=== PATIENT | female | born 1980 | race Caucasian/White ===

== ENCOUNTER 2017-08-19 20:47 | Inpatient (IN) | payer OTHER ==
[~2017-08-19] VITALS: Ht 162.6 cm; Wt 65.0 kg
[2017-08-19] MEDS ORDERED: MoRPHine SULFATE 4 MG/ML 1 ML CARP\\VIAL ONE (21:26)
[2017-08-19] MEDS ORDERED: ONDANSETRON INJ 2 MG/ML 2 ML VIAL ONE (21:26)
[2017-08-19] MEDS ORDERED: CEFAZOLIN SOD 1000MG/5 ML IV PUSH IV STA ×2 (21:31→22:22)
[2017-08-19] MEDS ORDERED: XYLOCAINE 1%/SOD BICARB 20 ML VIAL INFIL ONE (21:45)
[2017-08-19] MEDS ORDERED: BUPIVACAINE 0.25% 30 ML VIAL INFIL ONE (21:45)
--- NOTE | 2017-08-19 21:49 | DIAGNOSTIC IMAGING REPORT ---
R HAND MIN 3 VIEWS ROUTINE CLINICAL HISTORY: 2nd 3rd and 4th finger amputation COMPARISON: None. DISCUSSION: No evidence for soft tissue avulsions overlying the distal phalanges of the second third and fourth fingers. small partial bony avulsions of the tuft of dislocation. No evidence dislocation. The remaining bony structures are unremarkable. IMPRESSION: 1. Partial tuft avulsions of the distal phalanges of the second third and fourth fingers with associated soft tissue disruption and substance loss. No evidence for dislocation. The above report was generated using voice recognition software. It may contain grammatical, syntax or spelling errors. Electronically signed by: Arie Vargas M.D. 08/19/2017 9:47 PM Dictated Date/Time: 08/19/2017 9:46 PM
[2017-08-19 21:53] LABS: BASO % 0.3 %; BASO ABS # 0.03 K/uL (0-0.2); COMPLETE YES; EOS % 1.6 %; IG% 0.3 %; LYMPH % 30.4 %; LYMPH ABS # 2.84 K/uL (1.2-3.4); MEAN CELL VOLUME 93.1 fL (80-100); MEAN CORPUSCULAR HEMOGLOBIN 31.4 pg (25-34); MEAN CORPUSCULAR HGB CONC 33.7 g/dl (32-36); MEAN PLATELET VOLUME 9.2 fL (7.4-10.4); MONO % 10.2 %; NEUT % 57.2 %; PLATELET COUNT 295 K/uL (130-400); RED BLOOD COUNT 4.08 M/uL (4.2-5.4); WHITE BLOOD COUNT 9.35 K/uL (4.8-10.8)
[2017-08-19 22:01] LABS: BUN/CREATININE RATIO 11.1 (10-20); CALCIUM 8.7 mg/dl (8.5-10.1); CREATININE 0.77 mg/dl (0.60-1.20); POTASSIUM 3.4 mmol/L (3.5-5.1)
[2017-08-19] MEDS ORDERED: HYDROmorphone INJ 1 MG/ML SYR ONE (22:04)
[2017-08-19] MEDS ORDERED: GENTAMICIN INJ 60 MG in DEXTROSE 5% 100ML 100 ML IV STA (22:28)
[2017-08-19] MEDS ORDERED: DIPHTHERIA/TETANUS/PERTUSSIS 0.5 ML SYR/VIAL IM. ONE (22:30)
[2017-08-19] MEDS ORDERED: BUPR-79 PO (22:31)
[2017-08-20] VITALS (7 sets, daily range): BP systolic 124–152; BP diastolic 79–103; PULSE 61–77; TEMP 36.3–36.6; O2SAT 98–100; Ht 162.6 cm; Wt 65.0 kg
[2017-08-20] MEDS ORDERED: HYDROmorphone INJ 0.5 MG/0.5 ML SYR IM PRN
[2017-08-20] MEDS ORDERED: ONDANSETRON INJ 2 MG/ML 2 ML VIAL IV PRN
[2017-08-20] MEDS ORDERED: METOCLOPRAMIDE HCL INJ 5 MG/ML 2 ML VIAL IV PRN
--- NOTE | 2017-08-20 00:39 | EMERGENCY ROOM VISIT NOTE ---
History Report prepared by Srinivas: Alexandra Riggs Under the Supervision of: Dr. Khanh Mcpherson M.D. First contact with patient: 21:11 Chief Complaint: LACERATION/CUT (SUT/DERMABOND) Stated Complaint: LAC FINGERS MISSING W/C Nursing Triage Summary: pt reports that she was at work and pinched her fingers in a press. pt has amputation of right 2nd, 3rd and 4th fingers above the 1st knuckle. History of Present Illness The patient is a 37 year old female who presents to the Emergency Room with complaints of an episode of a laceration to her fingers occurring prior to arrival. The patient states that she was working a press when her fingers rolled down into the cylinders. She reports that they crushed them together. The patient notes that she is a past addict and doesn't want any pain medication. She denies any chance of being . The patient states that her last Tetanus was 7 years ago. She reports that she is right handed. She currently rates her pain as an 8/10 in severity. She denies any other injury. Source of History: patient Onset: prior to arrival Position: finger(s) Symptom Intensity: 8/10 Quality: other (crushed) Timing: other (episode) Modifying Factors (Worsening): movement Associated Symptoms: No vomiting Review of Systems See HPI for pertinent positives & negatives. A total of 10 systems reviewed and were otherwise negative. Past Medical & Surgical Medical Problems: (1) Degloving injury of finger (2) Degloving injury of forearm (3) No Known Active Medical Problems Family History No pertinent family history Social History Smoking Status: Current Every Day Smoker Marital Status: single Housing Status: lives alone Occupation Status: employed Current/Historical Medications Scheduled Bupropion (Wellbutrin Sr), 150 MG PO BID Allergies Coded Allergies: Acetaminophen (Unverified Allergy, Intermediate, VOMITING, 06/01/12) Hydrocodone (Unverified Allergy, Intermediate, VOMITING, 06/01/12) Levofloxacin (Unverified Allergy, Intermediate, FAINTING, 06/01/12) Hyoscyamine (Verified Allergy, Unknown, UNKNOWN, 08/19/17) Tramadol (Unverified Allergy, Unknown, SHORTNESS OF BREATH, 08/19/17) Physical Exam Vital Signs Date Time Temp Pulse Resp B/P (MAP) Pulse Ox O2 Delivery O2 Flow Rate FiO2 08/19/17 23:45 135/87 08/19/17 23:35 75 20 95 08/19/17 23:30 131/90 08/19/17 23:20 90 19 95 Room Air 08/19/17 23:15 131/93 08/19/17 23:05 87 22 98 08/19/17 23:00 79 20 127/85 96 08/19/17 22:45 85 15 140/88 97 08/19/17 22:30 88 16 133/90 95 08/19/17 22:26 123/92 08/19/17 22:21 145/88 08/19/17 22:15 101 19 150/94 90 08/19/17 22:10 146/99 08/19/17 22:05 143/100 08/19/17 22:00 82 21 146/95 95 08/19/17 21:57 77 16 133/90 96 Room Air 08/19/17 21:57 133/90 08/19/17 21:45 83 16 97 08/19/17 21:30 87 17 135/84 94 08/19/17 21:29 100 20 135/84 95 Room Air 08/19/17 21:15 108 18 96 08/19/17 21:07 149/99 08/19/17 21:07 91 24 149/99 97 Room Air 08/19/17 21:03 92 08/19/17 20:57 103 16 162/98 Room Air 08/19/17 20:54 36.7 66 20 97 Room Air Physical Exam Constitutional: Vital signs reviewed. Eyes: Pupils are equal round reactive to light. Conjunctiva are noninjected. ENT: Pharynx is clear without erythema or exudate. Mucous membranes are moist. Neck supple without meningeal signs. Respiratory: Clear to auscultation bilaterally. Breath sounds are equal bilaterally. Cardiovascular: Regular rate and rhythm. No rubs or gallops. GI: Soft, nondistended and nontender. Bowel sounds are present. Musculoskeletal: No peripheral edema. No lower extremity tenderness. Distal amputations of the right second, third, and fourth digits with the distal phalanges protruding outwards. Nails are also amputated. Integumentary: No cyanosis. Neurological: The patient is awake and alert. No focal deficits. Psychiatric: Anxious. Medical Decision & Procedures ER Provider Diagnostic Interpretation: Radiology results as stated below per my review and the radiologist's interpretation: R HAND MIN 3 VIEWS ROUTINE CLINICAL HISTORY: 2nd 3rd and 4th finger amputation COMPARISON: None. DISCUSSION: No evidence for soft tissue avulsions overlying the distal phalanges of the second third and fourth fingers. small partial bony avulsions of the tuft of dislocation. No evidence dislocation. The remaining bony structures are unremarkable. IMPRESSION: 1. Partial tuft avulsions of the distal phalanges of the second third and fourth fingers with associated soft tissue disruption and substance loss. No evidence for dislocation. The above report was generated using voice recognition software. It may contain grammatical, syntax or spelling errors. Electronically signed by: Arie Vargas M.D. 08/19/2017 9:47 PM Dictated Date/Time: 08/19/2017 9:46 PM Laboratory Results 08/19/17 21:05 Red Blood Count 4.08, Mean Corpuscular Volume 93.1, Mean Corpuscular Hemoglobin 31.4, Mean Corpuscular Hemoglobin Concent 33.7, Mean Platelet Volume 9.2, Neutrophils (%) (Auto) 57.2, Lymphocytes (%) (Auto) 30.4, Monocytes (%) (Auto) 10.2, Eosinophils (%) (Auto) 1.6, Basophils (%) (Auto) 0.3, Neutrophils # (Auto ) 5.35, Lymphocytes # (Auto) 2.84, Monocytes # (Auto) 0.95, Eosinophils # (Auto ) 0.15, Basophils # (Auto) 0.03 08/19/17 21:05 Test 08/19/17 21:05 White Blood Count 9.35 K/uL (4.8-10.8) Red Blood Count 4.08 M/uL (4.2-5.4) Hemoglobin 12.8 g/dL (12.0-16.0) Hematocrit 38.0 % (37-47) Mean Corpuscular Volume 93.1 fL (80-100) Mean Corpuscular Hemoglobin 31.4 pg (25-34) Mean Corpuscular Hemoglobin Concent 33.7 g/dl (32-36) Platelet Count 295 K/uL (130-400) Mean Platelet Volume 9.2 fL (7.4-10.4) Neutrophils (%) (Auto) 57.2 % Lymphocytes (%) (Auto) 30.4 % Monocytes (%) (Auto) 10.2 % Eosinophils (%) (Auto) 1.6 % Basophils (%) (Auto) 0.3 % Neutrophils # (Auto) 5.35 K/uL (1.4-6.5) Lymphocytes # (Auto) 2.84 K/uL (1.2-3.4) Monocytes # (Auto) 0.95 K/uL (0.11-0.59) Eosinophils # (Auto) 0.15 K/uL (0-0.5) Basophils # (Auto) 0.03 K/uL (0-0.2) RDW Standard Deviation 47.9 fL (36.4-46.3) RDW Coefficient of Variation 14.0 % (11.5-14.5) Immature Granulocyte % (Auto) 0.3 % Immature Granulocyte # (Auto) 0.03 K/uL (0.00-0.02) Anion Gap 9.0 mmol/L (3-11) Est Creatinine Clear Calc Drug Dose 84.8 ml/min Estimated GFR () 112.7 Estimated GFR (Non- 97.3 BUN/Creatinine Ratio 11.1 (10-20) Calcium Level 8.7 mg/dl (8.5-10.1) Laboratory results as reviewed by me. Medications Administered Medications (Trade) Dose Ordered Sig/Giuliano Route Start Time Stop Time Status Last Admin Dose Admin Morphine Sulfate (MoRPHine SULFATE INJ) 4 mg STK-MED ONCE .ROUTE 08/19/17 21:26 08/19/17 21:27 DC 08/19/17 21:29 4 MG Ondansetron HCl (Zofran Inj) 4 mg STK-MED ONCE .ROUTE 08/19/17 21:26 08/19/17 21:27 DC 08/19/17 21:28 4 MG Cefazolin Sodium (Cefazolin 1000mg Iv Push) 1,000 mg NOW STAT IV 08/19/17 21:31 08/19/17 21:32 DC 08/19/17 21:35 1,000 MG Hydromorphone HCl (Dilaudid Inj) 1 mg STK-MED ONCE .ROUTE 08/19/17 22:04 08/19/17 22:05 DC 08/19/17 22:15 1 MG Diphtheria/ Pertussis/Tetanus Vacc (Adacel Inj) 0.5 ml ONCE ONCE IM. 12/5/17 22:30 08/19/17 22:31 DC 08/20/17 00:10 0.5 ML Cefazolin Sodium (Cefazolin 1000mg Iv Push) 1,000 mg NOW STAT IV 08/19/17 22:22 08/19/17 22:24 DC 08/20/17 00:10 1,000 MG Gentamicin Sulfate 60 mg/ Dextrose 101.5 ml @ 100 mls/hr NOW STAT IV 08/19/17 22:28 08/19/17 23:28 DC 08/20/17 00:21 100 MLS/HR ED Course 2110: The patient was evaluated in room B1. A complete history and physical exam was performed. 2125: Ordered Zofran 4 mg .ROUTE, Morphine Sulfate 4 mg .ROUTE. 2130: Ordered Cefazolin Sodium 1000 mg IV. 5: I discussed the patient's case with Dr. Dixon. He is going to come in and evaluate the patient. 2145: Ordered Lidocaine HCl 20 ml INFIL, Bupivacaine HCl 10 ml INFIL. 2204: Ordered Dilaudid Inj 1 mg .ROUTE. 2222: Ordered Cefazolin Sodium 1000 mg IV. 2223: Dr. Paul requested additional Cefazolin Sodium and Tetanus booster. 2227: I discussed with the patient her allergy to Levaquin. She stated that when she was an addict she would make up allergies, but she is unsure why she made up an allergy to an antibiotic. Humberto states that we should give her Gentamicin. 2228: Ordered Gentamicin Sulfate 60 mg/Dextrose 101.5 ml @ 100 mls/hr IV. 2230: Ordered Adacel Inj 0.5 ml IM. 0003: Dr. Paul is going to further evaluate the patient and discharge after IV antibiotics. Medical Decision This is a 37-year-old female presents with partial amputations to her right hand. She is right-hand dominant. I did perform a limited focused review of portions of the patient's old chart on the electronic medical record. The patient has had no recent pertinent visits to this hospital. I did evaluate the patient as noted above. IV access was established. I did order and personally review the patient's right hand x-rays as described above. I did order and review the patient's blood work as noted in the electronic medical record. Initially the patient did not wish to have any narcotics because of her prior addiction. Unfortunately the patient's pain became worse while getting x-rays and so she did request something for pain. She was given 4 mg of morphine and 4 mg of Zofran IV. I also treated patient with Ancef IV. I did discuss case with the orthopedic doctor who did come and evaluate the patient here. He did repair her fingers in the emergency department. He did request that the patient receive additional antibiotics including gentamicin and a tetanus is 2. The patient was given an Adacel injection IM. She was also given an additional gram of Ancef IV. Because of a listed fluoroquinolone allergy she was given gentamicin IV. The patient was hospitalized by the orthopedic surgeon. Medication Reconcilliation Current Medication List: was personally reviewed by me Blood Pressure Screening Patient's blood pressure: Elevated blood pressure Blood pressure disposition: Elevated BP felt to be situational Consults Time Called: 2131 Consulting Physician: Dr. Dixon- Orthopedics Returned Call: 2134 I discussed the patient's case with Dr. Dixon. He is going to come in and evaluate the patient. 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 I confirm that the note above accurately reflects all work, treatment, procedures, and medical decision making performed by me. 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 Encounter type: initial encounter Qualified Codes: S68.622A - Partial traumatic transphalangeal amputation of right middle finger, initial encounter Additional Impressions: Partial traumatic transphalangeal amputation of right index finger Encounter type: initial encounter Qualified Codes: S68.620A - Partial traumatic transphalangeal amputation of right index finger, initial encounter Partial traumatic transphalangeal amputation of right ring finger Encounter type: initial encounter Qualified Codes: S68.624A - Partial traumatic transphalangeal amputation of right ring finger, initial encounter
--- NOTE | 2017-08-20 01:03 | HISTORY & PHYSICAL EXAMINATION ---
DATE OF ADMISSION: 08/19/2017 CHIEF COMPLAINT: Degloving injury to the right index, long, and ring fingers. HISTORY OF PRESENT ILLNESS: Ms. Trujillo is a 37-year-old right hand dominant female who was at work tonight around 8:15 p.m. at a [employer] factory when her index, long, and ring fingers became caught between 2 rollers sustaining a degloving injury of these fingers. She was brought from the scene by private car to the Emergency Room. X-rays were obtained. Orthopedics was consulted for management. The patient denies any previous problems with the hand. She did not sustain any other injuries from this accident. The pain is localized to the tips of the 3 fingers. She has not had a tetanus shot in 7 years. She did receive 4 mg of IV morphine initially in the Emergency Room which brought her pain from a 10/10 to a 6/10. 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 PHYSICAL EXAMINATION: GENERAL: She is a healthy appearing female in appropriate amount of distress given her injury, but alert and oriented x3. CARDIOVASCULAR: Reveals patient to have warm and well perfused bilateral upper extremities with adequate blood flow to the fingertips as evidenced by bleeding of the index, long, and ring fingers. NEUROLOGIC: Reveals it to be sensory intact to light touch in median, ulnar, radial nerve distributions bilaterally. SKIN: Shows some dirt and ink on her hands from work at the [employer] including a small green flecks of what appears to be ink throughout her wounds. MUSCULOSKELETAL: Left hand which is unaffected shows full range of motion, 5/5 strength. Normal ligamentous exam and no tenderness to palpation. Examination of the right hand reveals degloving injuries of the index, long, and ring fingers. The nails have been completely avulsed. The soft tissue from approximately the mid to proximal nail has been avulsed leaving the distal phalanx exposed. She is able to fire the EDC and FDS to each of these 3 fingers; however. There is gross contamination of the wound as noted above. There is not adequate soft tissue coverage for the bone at present. Results reviewed, x-rays done of the hand 3 views were reviewed by me. These demonstrate soft tissue loss from the index, long, and ring fingers with some bone loss noted as well, particularly from the distal phalanx of the fourth finger. IMPRESSION: A 37-year-old female with degloving injuries with exposed bone of the index, long, and ring fingers with inadequate soft tissue coverage of the bone at present. PLAN: I discussed the diagnosis with the patient. My recommendation was for primary shortening amputation after irrigating and debriding her wounds. After reviewing the risks and benefits, she signed the informed consent form. The patient will be admitted to the hospital. I am going to keep her on 24 hours of IV Unasyn. We will plan on discharging her home on assuming her pain is well controlled on oral medications. She does have a history of narcotic abuse and so we will try to minimize the amount of narcotics for her by giving her IV Toradol and transitioning her to oral NSAIDs hopefully tomorrow. She will elevate her extremity and keep it cool with ice. No DVT prophylaxis is indicated for this peripheral extremity injury and ambulatory in otherwise healthy patient. CHERY
[2017-08-20] MEDS: KETOROLAC TROMETHAMINE 30 MG/ML VIAL IV. PRN ×3 (01:44→20:24)
[2017-08-20] MEDS: AMPICILLIN/SULBACTAM SOD INJ 3,000 MG in SODIUM CHLORIDE 0.9% 100ML 100 ML IV SCH ×4 (03:24→19:49)
[2017-08-20] MEDS: OXYCODONE/ACETAMINOPHEN 5-325 TAB PO PRN ×2 (03:43→09:06)
[2017-08-20] MEDS ORDERED: NURSING VERBAL MED ORDER ONE (04:30)
[2017-08-20] MEDS: HYDROmorphone INJ 0.5 MG/0.5 ML SYR IV PRN ×6 (05:15→23:34)
--- NOTE | 2017-08-20 08:05 | Orthopedic Progress Note ---
Orthopedic Progress Note Date of Service Aug 20, 2017. Subjective Additional Notes: Required some IV dilaudid overnight to control her pain. No f/c/cp/sob Objective dressing C/D/I, A&O x3 Date Time Temp Pulse Resp B/P (MAP) Pulse Ox O2 Delivery O2 Flow Rate FiO2 08/20/17 02:41 72 152/94 (113) 08/20/17 02:15 Room Air 08/20/17 02:15 36.4 77 18 146/103 98 Room Air 08/20/17 01:02 81 16 140/96 99 08/20/17 00:35 81 16 99 Room Air 08/20/17 00:20 82 18 96 08/20/17 00:05 73 16 100 08/20/17 00:03 140/96 08/19/17 23:50 95 20 94 08/19/17 23:45 135/87 08/19/17 23:35 75 20 95 08/19/17 23:30 131/90 08/19/17 23:20 90 19 95 Room Air 08/19/17 23:15 131/93 08/19/17 23:05 87 22 98 08/19/17 23:00 79 20 127/85 96 08/19/17 22:45 85 15 140/88 97 08/19/17 22:30 88 16 133/90 95 08/19/17 22:26 123/92 08/19/17 22:21 145/88 08/19/17 22:15 101 19 150/94 90 08/19/17 22:10 146/99 08/19/17 22:05 143/100 08/19/17 22:00 82 21 146/95 95 08/19/17 21:57 77 16 133/90 96 Room Air 08/19/17 21:57 133/90 08/19/17 21:45 83 16 97 08/19/17 21:30 87 17 135/84 94 08/19/17 21:29 100 20 135/84 95 Room Air 08/19/17 21:15 108 18 96 08/19/17 21:07 149/99 08/19/17 21:07 91 24 149/99 97 Room Air 08/19/17 21:03 92 08/19/17 20:57 103 16 162/98 Room Air 08/19/17 20:54 36.7 66 20 97 Room Air Laboratory Results 24 Hours: Test 08/19/17 21:05 White Blood Count 9.35 K/uL Red Blood Count 4.08 M/uL Hemoglobin 12.8 g/dL Hematocrit 38.0 % Mean Corpuscular Volume 93.1 fL Mean Corpuscular Hemoglobin 31.4 pg Mean Corpuscular Hemoglobin Concent 33.7 g/dl Platelet Count 295 K/uL Mean Platelet Volume 9.2 fL Neutrophils (%) (Auto) 57.2 % Lymphocytes (%) (Auto) 30.4 % Monocytes (%) (Auto) 10.2 % Eosinophils (%) (Auto) 1.6 % Basophils (%) (Auto) 0.3 % Neutrophils # (Auto) 5.35 K/uL Lymphocytes # (Auto) 2.84 K/uL Monocytes # (Auto) 0.95 K/uL Eosinophils # (Auto) 0.15 K/uL Basophils # (Auto) 0.03 K/uL Assessment & Plan Assessment: Hospital day 1 s/p primary shortening amputations index, long and ring fingers. Patient has history of drug abuse, but is expected to have a fair amount of pain after this procedure Plan: Minimize IV dilaudid Indomethacin oral added to her pain regimen Elevate extremity Nursing to apply Ice packs over the fingers Continue IV Unasyn Plan on discharge home tomorrow with follow-up Dr. Paul's clinic Friday. Dressing to stay in place until Friday.
[2017-08-20] MEDS: DOCUSATE SODIUM 100 MG CAP PO SCH ×2 (08:22→20:29)
[2017-08-20] MEDS ORDERED: INDOMETHACIN 25 MG CAP PO SCH (09:00)
--- NOTE | 2017-08-20 11:58 | DIAGNOSTIC IMAGING REPORT ---
R HAND MIN 3 VIEWS ROUTINE HISTORY: 37 years-old Female s/p primary shortening amputations, index long and ring fingers status post injury of the right hand. Acute pain COMPARISON: Right hand radiographs 08/19/2017 TECHNIQUE: 3 views of the right hand FINDINGS: The exam is limited secondary to flexion of the interphalangeal joints. Gauze material of the digits limits evaluation for fine bony detail. Posttraumatic indication injuries of the second, third and fourth distal phalanges are noted at the level of the proximal metaphyses. There are 2 bone fragment or opaque foreign bodies are noted within the radial tissues of the third digit adjacent to the middle phalanx measuring up to 2 mm. IMPRESSION: 1. Post traumatic amputation of the distal second, third and fourth digits at the level of the proximal metaphysis of the distal phalanges. 2. There are two 2 mm bone fragments or opaque foreign bodies within the radial soft tissues adjacent to the third middle phalanx. The above report was generated using voice recognition software. It may contain grammatical, syntax or spelling errors. Electronically signed by: Ken Stark M.D. 08/20/2017 11:57 AM Dictated Date/Time: 08/20/2017 11:53 AM
[2017-08-21] MEDS: AMPICILLIN/SULBACTAM SOD INJ 3,000 MG in SODIUM CHLORIDE 0.9% 100ML 100 ML IV SCH ×3 (01:54→13:49)
[2017-08-21] MEDS: OXYCODONE/ACETAMINOPHEN 5-325 TAB PO PRN ×4 (02:00→17:22)
[2017-08-21] MEDS: KETOROLAC TROMETHAMINE 30 MG/ML VIAL IV. PRN (06:39)
[2017-08-21 07:42] VITALS: BP 113/61; PULSE 68; TEMP 36.9; O2SAT 98
[2017-08-21] MEDS: DOCUSATE SODIUM 100 MG CAP PO SCH (08:58)
--- NOTE | 2017-08-21 09:03 | Orthopedic Progress Note ---
Orthopedic Progress Note Date of Service Aug 21, 2017. Subjective Post OP Day: Hospital Day 2 Reports: feeling well, Denies: complaints, chest pain, SOB, nausea / vomiting, light headedness, calf pain, pain controlled w PO medications, using [employer] Additional Notes: Required dose of IV Dilaudid at ~7 AM today for pain control Objective N/V intact, capillary refill less than 2 sec., dressing C/D/I, incision C/D/I, A &O x3, CMS intact Date Time Temp Pulse Resp B/P (MAP) Pulse Ox O2 Delivery O2 Flow Rate FiO2 08/21/17 07:43 Room Air 08/21/17 07:42 36.9 68 16 113/61 (78) 98 Room Air 08/20/17 23:35 Room Air 08/20/17 22:51 36.5 68 16 124/79 (94) 98 Room Air 08/20/17 16:27 36.3 61 16 145/98 (114) 100 Room Air 08/20/17 16:15 98 Room Air 08/20/17 12:30 36.6 66 16 136/87 (103) 98 Room Air Assessment & Plan Assessment: Hospital day 2 s/p primary shortening amputations index, long and ring fingers. Patient has history of drug abuse, but is expected to have a fair amount of pain after this procedure Plan: Need to wean off IV Dilaudid IV Dilaudid and Toradol were both stopped (Discussed this with Dr. Paul) Cont Indomethacin and PO Percocet for pain regimen Elevate extremity Nursing to apply Ice packs over the fingers Continue IV Unasyn as previously instructed Will see patient later this afternoon. Plan on discharge home today if pain can be controlled with PO meds. Follow up at Dr. Paul's clinic Friday. Dressing to stay in place until Friday.
[2017-08-21] MEDS ORDERED: INDOMETHACIN 25 MG CAP PO SCH (14:00)
--- NOTE | 2017-08-21 15:29 | Orthopedic Progress Note ---
Orthopedic Progress Note Date of Service Aug 21, 2017. Subjective Post OP Day: Hospital admission day 2 Reports: feeling well, pain controlled w PO medications, Denies: complaints, chest pain, SOB, nausea / vomiting, light headedness, calf pain, using [employer] Objective N/V intact, capillary refill less than 2 sec., dressing C/D/I, A&O x3, CMS intact Date Time Temp Pulse Resp B/P (MAP) Pulse Ox O2 Delivery O2 Flow Rate FiO2 08/21/17 07:43 Room Air 08/21/17 07:42 36.9 68 16 113/61 (78) 98 Room Air 08/20/17 23:35 Room Air 08/20/17 22:51 36.5 68 16 124/79 (94) 98 Room Air 08/20/17 16:27 36.3 61 16 145/98 (114) 100 Room Air 08/20/17 16:15 98 Room Air Assessment & Plan Assessment: Hospital day 2 s/p primary shortening amputations index, long and ring fingers. Patient has history of drug abuse, but is expected to have a fair amount of pain after this procedure Plan: Has not had Dilaudid since this AM IV Dilaudid and Toradol were both stopped (Discussed this with Dr. Paul) Cont Indomethacin and PO Percocet for pain regimen Elevate extremity Nursing to apply Ice packs over the fingers Continue IV Unasyn as previously instructed Will see patient later this afternoon. Plan on discharge home today on PO Augmentin and oral pain meds. Follow up at Dr. Paul's clinic Tomorrow. Dressing to stay in place until follow up. Discharge Planning Discharge Planning: home Pain Management: other (Oxycodone, Tylenol and Indomethocin.)
[2017-08-21] MEDS ORDERED: OXYC1CAP5 PO (15:35)
[2017-08-21] MEDS ORDERED: ACET-1256 PO (15:35)
[2017-08-21] MEDS ORDERED: IND/25 PO (15:35)
--- NOTE | 2017-08-21 15:39 | Discharge Instructions ---
Discharge Instructions Date of Service Aug 21, 2017. Admission Reason for Admission: Degloving Injury Of Finger,Deglov. Inj. Of Forearm Discharge Discharge Diagnosis / Problem: Degloving injury of Right hand/forearm Discharge Goals Goal(s): Decrease discomfort, Improve function, Increase independence Activity Recommendations Activity Limitations: as noted below Lifting Limitations: until after follow-up appointment Exercise/Sports Limitations: until after follow-up appointment May Resume Sexual Activity: after follow-up appointment Shower/Bathe: tomorrow, keep incision dry Driving or Machine Use: No driving until cleared by orthopedic surgeon Weightbearing Status: Right non-weightbearing (Upper extremity) . Instructions / Follow-Up Instructions / Follow-Up Post-operative Instructions Dear Patient and Family/Friends, Before you are discharged from the hospital, it is important to know what to expect when you get home after surgery. To that end, we have created this sheet of discharge instructions which covers many commonly asked questions. Make sure you go through this sheet in its entirety with your nurse before you are discharged. Please note that we will go over the specifics of your surgery and recovery when you return for your first post-operative visit. Sincerely, Dr. Paul Pain Expect to be in a fair amount of pain after surgery. Remember, our goal is not to eliminate your pain, but to make it tolerable. It is a good idea to stay ahead of your pain by taking the medications you were prescribed once you get home. Typically, the pain starts improving 3-7 days after surgery. You should start weaning off the narcotic pain medication (oxycodone, hydrocodone, hydromorphone, morphine) as soon as your pain improves. Please call our office if your pain is not adequately controlled. Ice Ice your operative site at least 5 times a day for 15-30 minutes at a time. Make sure you have a thin cloth between the ice or cooling unit and your skin to prevent hanks bite. This is especially important if you received a nerve block. Continue icing your operative site for the first 5-7 days after surgery , then as needed. Diet/Nausea/Vomiting Start by drinking clear liquids and eating crackers. If you can tolerate this, then you may resume your normal diet. If you feel nauseated or vomit, take Zofran/ondansetron (if prescribed). Please call our office if you have intractable nausea or vomiting, or, if after hours, you may go to the Emergency Room for help. Constipation Constipation is a common side effect of narcotic pain medication. If you have not had a bowel movement within 2 days after surgery, we recommend purchasing an over the counter laxative such as Milk of Magnesia, Dulcolax, or Miralax from a local pharmacy, and taking it as instructed. Call our clinic if any questions. Slings and Braces If you were placed in a sling or brace, it must be worn at all times, including sleep. You may remove your sling or brace for physical therapy, home exercises , and showering. The length of time you will be in your brace and range of motion restrictions depends on what surgery you had; these details will be reviewed at your first post-operative appointment. Nerve block The anesthesia team sometimes places a nerve block to help with post-operative pain control. This results in significant numbness and inability to move the extremity. The nerve block usually wears off in 8-12 hours, but sometimes can last up to 24 hours. Please call our office if you are still unable to move your extremity after 24 hours, unless you received a pain pump to take home. Nerve blocks typically wear off quickly, so start taking pain medication as soon as you start feeling soreness near your surgical site. Weight bearing and Range of Motion. Do not bear any weight through your operative extremity immediately after surgery. If you had upper extremity surgery, do not lift anything with that arm. If you are in a knee brace, keep it locked in place until your follow-up. We will discuss your weight bearing, range of motion, and lifting restrictions in detail at your first post-operative appointment. Continuous Passive Motion (CPM) Machine If you were prescribed a CPM machine, it will start after your first post- operative appointment, at which time we will give you instructions on the range of motion settings and duration of treatment Physical therapy You will be given a prescription for physical therapy or occupational therapy at your first post-operative appointment. Typically, patients start therapy within 1 week of surgery Wound care and showering We will inspect your wound at your first post-operative visit, and may do a dressing change at that time. Most patients will be in a water-proof dressing that is removed 14 days after surgery. It is normal to see some dried blood on the dressing. Do not remove your dressing, paper strips or sutures yourself unless you are given permission. Showering is allowed the day after surgery. Do not scrub or remove any dressings. The wound should not be submerged underwater (i.e. in a bathtub or pool) until 4 weeks after surgery VALENTÍN stockings If you were given white stockings, these are to be worn at all times except to shower (on both legs) for the first 2 weeks after surgery. Driving You may not drive while taking narcotic pain medication or while in a cast, splint, sling or brace. You, the patient, need to make the final determination about when you are safe to drive, however, the earliest you may consider driving after surgery is below: Hand/Wrist/Elbow Surgery: 3 days Shoulder Surgery: 2 weeks Hip,/Knee/Ankle Surgery: 4 weeks Fracture repair: 6 weeks Return to Work Your return to work depends on what surgery was done and what type of work you do. Please bring any paperwork your employer needs completed to your first post -operative visit. Also, bring a description of your job duties, as this helps us to understand what risks you may face at work. Travel Avoid long distance travel (greater than 1 hour) in airplanes and cars for the first 6 weeks after surgery. If you must travel, you need to have a Doppler ultrasound done before you travel to rule out a blood clot in your legs. Follow-up You should have a follow-up appointment already scheduled 1-2 days after surgery. If not, please contact our office to make this appointment before you leave the hospital. When to call the office It is normal to have swelling and bruising in the limb that was operated on. This will improve with time. It is also normal to have fevers for the first 2 days after surgery. Reasons you should call your doctor include: Uncontrolled pain; Nausea, vomiting, or constipation that does not improve with medication; Fevers over 101.5, chills, sweats; Drainage or bleeding from the wound; Foul odor; Spreading areas of redness; Any other concerns Current Hospital Diet Patient's current hospital diet: Regular Diet Discharge Diet Recommended Diet: Regular Diet Procedures Procedures Performed: See Dr. Paul note from ED Pending Studies Studies pending at discharge: no Medical Emergencies . Who to Call and When: Medical Emergencies: If at any time you feel your situation is an emergency, please call 911 immediately. . Non-Emergent Contact Non-Emergency issues call your: Primary Care Provider Call Non-Emergent contact if: you have a fever, temperature is above 101.5, your pain is not controlled, your pain is worsening, wound has increased drainage, you have any medication questions . "Provider Documentation" section prepared by Romel Thrasher. . VTE Core Measure Inpt VTE Proph given/why not?: Treatment not indicated [place] Drug Monitoring Program Search Results: patient reviewed within database, no issues identified, see additional documentation
--- NOTE | 2017-08-21 15:48 | Discharge Summary ---
Orthopedic Discharge Summary Admission Date/Reason Aug 20, 2017 at 00:01 Degloving Injury Of Finger,Deglov. Inj. Of Forearm. 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 Admission Physical Exam As per Admitting History & Physical. Hospital Course Patient seen in ED in 08/20/17 for degloving injury of Rt hand after getting hand caught in rollers at work. Patient seen by Dr. Paul and primary amputation of Rt 2nd, 3rd and 4th digits in ED and admitted for pain control and IV ABX. Pt required pain control with IV Toradol and Dilaudid. These meds were discontinued this AM and patient received appropriate pain control with oral meds. Remainder of hospital stay was uneventful. Patient is ready to be discharge on PO Augmentin and will f/u with Dr. Paul at [facility] tomorrow. She has already called for her appointment. Discharge Instructions Please refer to the electronic Patient Visit Report (Discharge Instructions) for additional information.
[2017-08-21] MEDS ORDERED: AMOX875T PO (15:53)
[2017-08-21 17:07] VITALS: BP 113/61; PULSE 68; TEMP 36.9; O2SAT 98
--- NOTE | 2017-08-22 09:48 | OPERATIVE REPORT ---
DATE: 08/20/2017 PREOPERATIVE DIAGNOSIS: POSTOOPERATIVE DIAGNSOIS: PROCEDURE: SURGEON: Kalen Paul MD. After reviewing the risks and benefits, she signed the informed consent form. PROCEDURE NOTE: The area around the MCP joints was cleansed with alcohol and digital blocks of the index, long, and ring fingers were performed using a total of 30 mL of a 1:1 mixture of 0.5% bupivacaine and 1% lidocaine, both without epinephrine, 5 mL for each digital nerve. When she was numb the hand was rinsed with a 1-1/2 liters of normal saline to remove the dried blood. I then carefully inspected her wound and removed any gross contamination of a little dirt specks and green ink fragments which were throughout the wound. Once the gross contamination was removed, I then irrigated the wounds with 3 liters of normal saline. I then prepped the hand with Betadine. The hand was then sterilely draped. Using sterile technique, the nail fold was lifted and the germinal matrix and sterile matrix were debrided off of each distal phalanx sharply with a 15 blade. The soft tissue was dissected off the bone with a knife sharply taking care to preserve the extensor tendon and FDP tendon insertions. I then used a rongeur to trim back the bone of each finger just distal to the extensor and flexor tendon insertions. The bone was carefully rounded to avoid any sharp bony prominences with a rongeur. I then loosely closed the soft tissues to cover the bone using interrupted simple 3-0 nylon sutures. This technique was performed for the index, long and ring fingers. Once this was complete, Xeroform was placed over the wounds followed by Telfa, 4 x 4 gauze sponge, 2 inch inch Santana wrap and a 1 inch Coban. I attest to the content of the Intraoperative Record and any orders documented therein. Any exceptions are noted below.
== END 2017-08-21 17:50 | disposition home or self-care (01) | DRG 906 ==
LOC: C.EDB 20:48 → C.MSN 08-20 00:01 → ENRESERV 08-20 00:55
PROVIDERS: ADMIT Orthopaedic Surgery; ATTEND Orthopaedic Surgery
PROC: 0X6N0Z3 Detachment at Right Index Finger, Low, Open Approach (ICD-10-PCS; principal; 2017-08-20)
PROC: 0PDT0ZZ Extraction of Right Finger Phalanx, Open Approach (ICD-10-PCS; principal; 2017-08-20)
PROC: 0X6S0Z3 Detachment at Right Ring Finger, Low, Open Approach (ICD-10-PCS; principal; 2017-08-20)
PROC: 0X6Q0Z3 Detachment at Right Middle Finger, Low, Open Approach (ICD-10-PCS; principal; 2017-08-20)
DX: S68.620A Partial traumatic transphalangeal amputation of right index finger, initial encounter (principal); S68.622A Partial traumatic transphalangeal amputation of right middle finger, initial encounter; S68.624A Partial traumatic transphalangeal amputation of right ring finger, initial encounter; W31.89XA Contact with other specified machinery, initial encounter; Y92.63 Factory as the place of occurrence of the external cause; Y99.0 Civilian activity done for income or pay; F19.11 Other psychoactive substance abuse, in remission; F17.200 Nicotine dependence, unspecified, uncomplicated; Z23 Encounter for immunization; Z79.899 Other long term (current) drug therapy